=== PATIENT | male | born 1950 | race Caucasian/White ===

== ENCOUNTER 2017-12-02 00:10 | Emergency (ER) | payer MEDICARE, BC ==
[~2017-12-02] VITALS: Ht 182.9 cm; Wt 83.9 kg
--- NOTE | 2017-12-02 00:35 | NUR ---
MD CHRISTIANSON AT BEDSIDE.
[2017-12-02] MEDS ORDERED: CEPHALEXIN MONOHYDRATE 500 MG CAPSULE PO ONE (00:45)
[2017-12-02] MEDS ORDERED: LIDOCAINE HCL 2% 20 ML VIAL TP ONE (00:45)
[2017-12-02] MEDS ORDERED: TDAP DIPH,PERTUSS,TET VAC/PF 0.5 ML DISP.SYRIN IM ONE ×2 (00:45→00:59)
--- NOTE | 2017-12-02 00:50 | NUR ---
MD CHRISTIANSON PERFORMING LAC REPAIR
[2017-12-02] MEDS ORDERED: CEPHALEXIN MONOHYDRATE 500 MG CAPSULE ONE (00:59)
--- NOTE | 2017-12-02 01:15 | NUR ---
Patient discharged to home in stable conditon. Written and verbal after care instructions given. Patient verbalizes understanding of instructions. Laceration repair and antibiotics were well tolerated. Patient able to ambulate unassisted with steady gait. Patient left with all personal belongings.
[2017-12-02 01:20] VITALS: BP 118/75
== END 2017-12-02 01:20 | disposition home or self-care (01) ==
LOC: ER 00:19
DX: S61.216A Laceration without foreign body of right little finger without damage to nail, initial encounter (principal); W26.8XXA Contact with other sharp object(s), not elsewhere classified, initial encounter; Y93.89 Activity, other specified; Y92.89 Other specified places as the place of occurrence of the external cause; Y99.8 Other external cause status
CPT/HCPCS: 90715; A4663

== ENCOUNTER 2020-06-10 23:59 | Emergency (ER) | payer BC, MEDICARE, OTHER ==
[~2020-06-10] VITALS: Ht 182.9 cm; Wt 90.7 kg
[2020-06-11] MEDS ORDERED: FINA5TAB3 PO (00:12)
[2020-06-11] MEDS ORDERED: GABA300C PO (00:12)
[2020-06-11] MEDS ORDERED: GABA600T12 PO (00:12)
[2020-06-11] MEDS ORDERED: HYDR-3326 PO (00:12)
[2020-06-11] MEDS ORDERED: ASPI81TA31 PO (00:13)
--- NOTE | 2020-06-11 00:15 | NUR ---
Dr. Bates at bedside for MSE.
[2020-06-11] MEDS ORDERED: TDAP DIPH,PERTUSS,TET VAC/PF 0.5 ML DISP.SYRIN IM ONE ×2 (00:27→00:30)
[2020-06-11] MEDS ORDERED: NEOMY/BACITRA/POLYMYXIN B OINT UD PACKET TP ONE ×2 (00:30→00:31)
--- NOTE | 2020-06-11 00:47 | NUR ---
Patient discharged to home in stable condition. Written and verbal after care instructions given. Patient verbalizes understanding of instructions. Stressed follow up or return to ER for worsening s/s. Patient ambulated out of ER with steady gait, no acute signs of distress, VSS, all belongings taken.
[2020-06-11 00:48] VITALS: BP 124/86
== END 2020-06-11 00:49 | disposition home or self-care (01) ==
LOC: ER 06-11 00:03
DX: S61.217A Laceration without foreign body of left little finger without damage to nail, initial encounter (principal); S61.215A Laceration without foreign body of left ring finger without damage to nail, initial encounter; W26.8XXA Contact with other sharp object(s), not elsewhere classified, initial encounter; Y92.89 Other specified places as the place of occurrence of the external cause; Z96.651 Presence of right artificial knee joint; Z79.899 Other long term (current) drug therapy
CPT/HCPCS: 90715; A4217